=== PATIENT | male | born 1985 | race Caucasian/White ===

== ENCOUNTER 2017-05-24 08:36 | Outpatient (CLI) | payer OTHER ==
--- NOTE | 2017-05-24 12:45 | Diagnostic Imaging Report ---
Exam: Ultrasound examination of the abdomen. HISTORY: Elevated liver enzymes. Findings: Real-time ultrasound exam of the abdomen performed multiple planes. The study demonstrates a increased echogenicity liver parenchyma measuring 20 cm in span The gallbladder is distended. No evidence for calculi The common bile duct measures 4 mm. Pancreas poorly seen . There is no evidence of obstructive uropathy or nephrolithiasis. The spleen is enlarged at 12.8 cm in span ,no free fluid is noted. The study is limited due to patient body habitus and large amount of intra-abdominal bowel gas. IMPRESSION: 1. Question of fatty infiltration of liver parenchyma 2. Hepatosplenomegaly.
== END 2017-05-24 09:16 | disposition home or self-care (01) ==
LOC: EEVIPCON 08:36 → RAD 08:36
PROVIDERS: ATTEND Family Medicine
DX: R16.2 Hepatomegaly with splenomegaly, not elsewhere classified (principal)
CPT/HCPCS: 76700-TC